=== PATIENT | male | born 1985 | race Caucasian/White ===

== ENCOUNTER 2017-09-13 22:17 | Emergency (ER) | payer SELFPAY ==
[~2017-09-13] VITALS: Ht 167.6 cm; Wt 68.2 kg
[2017-09-14] MEDS ORDERED: DEXAMETHASONE 4 MG TABLET PO ONE (01:00)
[2017-09-14] MEDS ORDERED: MAALOX/LIDOCAINE/NYSTATIN SUSP 5 ML ORAL.SYG PO ONE (01:00)
[2017-09-14 01:29] LABS: INFLUENZA TYPE A NEGATIVE FOR TYPE A (NEGATIVE); INFLUENZA TYPE B NEGATIVE FOR TYPE B (NEGATIVE)
[2017-09-14 01:33] LABS: RAPID GROUP A STREP POSITIVE (NEGATIVE)
[2017-09-14 01:52] VITALS: BP 130/75
== END 2017-09-14 01:53 | disposition home or self-care (01) ==
LOC: EMS 22:19
DX: K12.0 Recurrent oral aphthae (principal); J02.0 Streptococcal pharyngitis
CPT/HCPCS: 87430; 87804; 99284; J8540

== ENCOUNTER 2020-07-28 19:11 | Emergency (ER) | payer MEDICAID ==
[~2020-07-28] VITALS: Ht 167.6 cm; Wt 68.2 kg
[2020-07-28 19:32] VITALS: BP 128/77
== END 2020-07-28 20:57 | disposition home or self-care (01) ==
LOC: EMS 19:11
DX: K04.7 Periapical abscess without sinus (principal); K02.9 Dental caries, unspecified
CPT/HCPCS: 99283; Z7502

== ENCOUNTER 2021-03-09 09:54 | Emergency (ER) | payer MEDICAID ==
[~2021-03-09] VITALS: Ht 160 cm; Wt 60.9 kg
[2021-03-09 10:03] VITALS: BP 117/71
[2021-03-09] MEDS ORDERED: CLINDAMYCIN HCL 150 MG CAPSULE PO ONE (11:00)
[2021-03-09] MEDS ORDERED: NAPROXEN 250 MG TABLET PO ONE (11:00)
== END 2021-03-09 11:18 | disposition home or self-care (01) ==
LOC: EMS 09:55
DX: K04.7 Periapical abscess without sinus (principal)
CPT/HCPCS: 99283

== ENCOUNTER 2022-02-19 08:33 | Emergency (ER) | payer MEDICAID ==
[~2022-02-19] VITALS: Ht 188 cm; Wt 113.6 kg
[2022-02-19 10:13] VITALS: BP 116/80
== END 2022-02-19 10:31 | disposition home or self-care (01) ==
LOC: EMS 08:39
DX: S60.420A Blister (nonthermal) of right index finger, initial encounter (principal); X58.XXXA Exposure to other specified factors, initial encounter; Y93.9 Activity, unspecified; Y92.89 Other specified places as the place of occurrence of the external cause; Y99.8 Other external cause status
CPT/HCPCS: 99281; Z7502

== ENCOUNTER 2022-09-18 08:40 | Emergency (ER) | payer MEDICAID ==
[~2022-09-18] VITALS: Ht 165.1 cm; Wt 68.2 kg
[2022-09-18] MEDS ORDERED: IBUP-45 PO (08:42)
[2022-09-18 09:53] LABS: COVID AG,FIA SOURCE NASAL SWAB
[2022-09-18 10:18] LABS: INFLUENZA TYPE A NEGATIVE FOR TYPE A (NEGATIVE); INFLUENZA TYPE B NEGATIVE FOR TYPE B (NEGATIVE)
[2022-09-18 10:38] LABS: RAPID GROUP A STREP NEGATIVE (NEGATIVE)
[2022-09-18 11:50] VITALS: BP 129/75
[2022-09-18] MEDS ORDERED: AMOX250C4 PO (12:25)
== END 2022-09-18 12:50 | disposition home or self-care (01) ==
LOC: EMS 08:45
DX: J01.00 Acute maxillary sinusitis, unspecified (principal); Z20.822 Contact with and (suspected) exposure to COVID-19
CPT/HCPCS: 87430; 87804; 99283

== ENCOUNTER 2024-09-04 18:19 | Emergency (ER) | payer MEDICAID ==
[~2024-09-04] VITALS: Ht 165.1 cm; Wt 65.9 kg
[~2024-09-04 18:19] MED LIST: AMOX250C4 PO; IBUP-45 PO
[2024-09-04 19:34] LABS: BASOPHILS % (AUTO) 0.6 % (0.0-2.0); EOSINOPHILS % (AUTO) 1.5 % (1.0-6.0); HEMATOCRIT 37.6 % (41-53); HEMOGLOBIN 12.9 g/dL (13.5-17.5); LYMPHOCYTES % (AUTO) 23.5 % (22.0-44.0); MEAN CORPUSCULAR HEMOGLOBIN 31.4 pg (26.0-34.0); MEAN CORPUSCULAR HGB CONC 34.3 G/dL (31.0-37.0); MEAN CORPUSCULAR VOLUME 92 fL (80-100); MONOCYTES # (AUTO) 0.9 K/uL (0.1-1.0); MONOCYTES % (AUTO) 10.2 % (2.0-9.0); NEUTROPHILS # (AUTO) 5.5 K/uL (1.8-7.7); NEUTROPHILS % (AUTO) 64.2 % (40.0-70.0); PLATELET COUNT (AUTO) 375 K/uL (150-450); RED BLOOD CELL COUNT(AUTO) 4.11 MIL/uL (4.50-5.90); RED CELL DISTRIBUTION WIDTH 13.3 % (11.5-14.5); WHITE BLOOD COUNT (AUTO) 8.6 K/uL (4.5-11.0)
[2024-09-04 19:37] LABS: ANION GAP 7 mmol/L (8-16); CALCIUM, TOTAL 8.1 mg/dL (8.8-10.5); CARBON DIOXIDE 29 mmol/L (22-29); CHLORIDE 103 mmol/L (98-107); CREATININE 0.82 mg/dL (0.60-1.30); GLOMERULAR FILTR. RATE CALC > 60 mL/min (>60); GLUCOSE,RANDOM 108 mg/dL (70-110); POTASSIUM 3.6 mmol/L (3.5-5.1); SODIUM SERUM 139 mmol/L (136-145); UREA NITROGEN, BLOOD 14 mg/dL (7-18)
[2024-09-04 19:55] LABS: ALCOHOL, BLOOD (SERUM) < 3 mg/dL (0-10)
[2024-09-04] MEDS ORDERED: MECL-134 PO (20:43)
[2024-09-04] MEDS ORDERED: ACET-66 PO (20:43)
[2024-09-04] MEDS ORDERED: METH-659 PO (20:43)
[2024-09-04] MEDS ORDERED: IBUP-1554 PO (20:43)
[2024-09-04] MEDS: ACETAMINOPHEN 500 MG TABLET PO ONE (21:07)
[2024-09-04] MEDS: MECLIZINE HCL 25 MG TABLET PO ONE (21:08)
[2024-09-04] MEDS: METHOCARBAMOL 500 MG TABLET PO ONE (21:08)
[2024-09-04 21:32] VITALS: BP 129/77; PULSE 68; RESP 18; TEMP 97.9; O2SAT 99
== END 2024-09-04 22:00 | disposition home or self-care (01) ==
LOC: EMS 18:19
DX: S39.012A Strain of muscle, fascia and tendon of lower back, initial encounter (principal); R42 Dizziness and giddiness; X58.XXXA Exposure to other specified factors, initial encounter; Y93.89 Activity, other specified; Y92.89 Other specified places as the place of occurrence of the external cause; Y99.8 Other external cause status
CPT/HCPCS: 99284; 80048; 85025; 36415; 93005; G0480

== ENCOUNTER 2025-01-31 08:22 | Emergency (ER) | payer OTHER, MEDICAID ==
[~2025-01-31] VITALS: Ht 165.1 cm; Wt 68.1 kg
[~2025-01-31 08:22] MED LIST changes: +ACET-66 PO; +IBUP-1554 PO; +MECL-134 PO; +METH-659 PO
[2025-01-31 08:38] VITALS: BP 116/74; PULSE 90; RESP 18; TEMP 98.4; O2SAT 96
[2025-01-31 08:51] LABS: COVID AG,FIA SOURCE NASAL SWAB
[2025-01-31 09:18] LABS: INFLUENZA TYPE A NEGATIVE FOR TYPE A (NEGATIVE); INFLUENZA TYPE B NEGATIVE FOR TYPE B (NEGATIVE); SARS-COV2 (COVID) ANTIGEN,FIA Negative (Negative)
[2025-01-31 09:21] LABS: RAPID GROUP A STREP NEGATIVE (NEGATIVE)
== END 2025-01-31 10:33 | disposition left against medical advice (07) ==
LOC: EMS 08:22
DX: R05.9 Cough, unspecified (principal); Z53.21 Procedure and treatment not carried out due to patient leaving prior to being seen by health care provider; Z20.822 Contact with and (suspected) exposure to COVID-19
CPT/HCPCS: 87430; 87804